=== PATIENT | female | born 1985 | race Caucasian/White ===

== ENCOUNTER 2017-02-19 12:15 | Emergency (ER) | payer MEDICARE ==
[2014-05-16 12:19] VITALS: BMI 23.6
[~2017-02-19 12:15] MED LIST: BYSTOLIC5 MG PO; CIPRO500 MG PO; DEPAKOTE250 MG PO; DESERYL100 MG PO; FLAGYL500 MG PO; HYDROCODONE-APA1 TAB PO; HYDROXYUREA500 MG PO; KLONOPIN1 MG PO; LACTINEX GRANUL1 PCK PO; PHENERGAN25 M1 PO; PRILOSEC20 MG PO; TRI-SPRINTEC1 TAB PO; VANCOMYCIN250 MG/51 PO
[2017-02-19 12:52] LABS: BASOPHILS 0.3 % (0-2); EOSINOPHILS 2.1 % (0-7); HEMATOCRIT 38.9 % (36.0-48.0); HEMOGLOBIN 13.3 g/dL (12-16); IMMATURE GRANULOCYTES 0.4 % (0-5); LYMPHOCYTES 22.3 % (15-50); MCHC 34.2 g/dL (31.0-37.0); MCV 93.7 fL (80.0-100.0); MEAN PLATELET VOLUME 9.2 fL (7.4-10.4); MONOCYTES 4.3 % (2-11); NEUTROPHILS 70.6 % (40-80); PLATELET COUNT 344 10x3/uL (130-400); RBC 4.15 10x6/uL (4.00-5.40); RDW 12.8 % (11.5-14.5); WBC 14.6 10x3/uL (4.8-10.8)
[2017-02-19 13:09] LABS: ALBUMIN 3.4 g/dL (3.4-5.0); ALKALINE PHOSPHATASE 67 U/L (46-116); ALT (SGPT) 21 U/L (10-68); BILIRUBIN - TOTAL 0.23 mg/dL (0.2-1.3); CALC OSMOLALITY 276 mosm/kg (275-300); CARBON DIOXIDE 24.2 mmol/L (21.0-32.0); CHLORIDE - SERUM 103 mmol/L (98-107); CREATININE - SERUM 0.6 mg/dL (0.6-1.3); GLUCOSE 128 mg/dL (74-106); POTASSIUM - SERUM 3.7 mmol/L (3.5-5.1); PROTEIN - SERUM 7.4 g/dL (6.4-8.2); SODIUM 138 mmol/L (136-145); UREA NITROGEN 9 mg/dL (7-18); eGFR NON AFRICAN AMERICAN > 90 mL/min (90-120)
[2017-02-19 13:36] LABS: HCG SERUM NEGATIVE (NEGATIVE)
[2017-02-19 13:52] LABS: APPEARANCE SLT CLOUDY (CLEAR); BACTERIA MANY /hpf (NONE SEEN); BILIRUBIN NEGATIVE (NEGATIVE); COLOR YELLOW (YELLOW); GLUCOSE NEGATIVE (NEGATIVE); KETONE NEGATIVE (NEGATIVE); LEUKOCYTE ESTERASE 1+ (NEGATIVE); MUCUS <1+ /lpf (NONE SEEN); NITRITE NEGATIVE (NEGATIVE); PROTEIN NEGATIVE (NEGATIVE); SPECIFIC GRAVITY 1.015 (1.005-1.020); UROBILINOGEN NORMAL (NORMAL); WHITE CELLS - URINE 0-5 /hpf (0-5)
== END 2017-02-19 17:04 | disposition home or self-care (01) ==
LOC: D.ER 12:15
PROVIDERS: Emergency Medicine; Physician Assistant
DX: R10.84 Generalized abdominal pain (principal); K92.1 Melena; R31.29 Other microscopic hematuria; F31.89 Other bipolar disorder; I10 Essential (primary) hypertension; F17.200 Nicotine dependence, unspecified, uncomplicated

== ENCOUNTER → 2017-05-19 18:04 | Outpatient (CLI) | payer MEDICARE ==
[2014-05-16 12:19] VITALS: BMI 23.6
== END | disposition home or self-care (01) ==
LOC: D.LABREF 18:04
DX: R31.9 Hematuria, unspecified (principal)

== ENCOUNTER 2017-05-28 08:08 | Day surgery (SDC) | payer MEDICARE ==
[~2017-05-28 08:08] MED LIST changes: +VALTREX500 MG PO; +VRAYLAR3 MG PO
[2017-05-28 09:16] VITALS: BP 116/68; BMI 28.6
[2017-05-28 09:36] LABS: HCG URINE NEGATIVE (NEGATIVE)
--- NOTE | 2017-05-28 13:36 | NUR ---
1330-RECD TO ROOM FROM SURGERY. NO PACU STAY. DROWSY BUT AROUSES TO NAME CALL. DR ESCOBEDO HERE TO REPORT. REMINDED TO HOLD BLADDER FOR 10-15 MORE MINUTES. RESP WITH EASE. IV PATENT.
--- NOTE | 2017-05-28 15:02 | OP ---
PATIENT NAME: RAMSEY CONNOR MEDICAL RECORD: [id number] :85 LOCATION:D.OPS ADMISSION DATE: SURGEON: ANDREW ESCOBEDO MD DATE OF OPERATION: 05/28/2017 SURGEON: Andrew Escobedo MD. ANESTHESIA: MAC. PREOPERATIVE DIAGNOSES: Microhematuria, interstitial cystitis. PROCEDURES: Cystoscopy, intravesical Rimso-50 installation times 50 mL. FINDINGS: Single ureteral orifices bilaterally. No bladder tumors. Diffuse bladder inflammation with glomerulations. BLOOD LOSS: None. CLINICAL HISTORY: This is a 31-year-old female, who is a smoker. She has microhematuria. She was worked up for this. She comes today to have cystoscopy for microhematuria workup. She also complains of dysuria and chronic pelvic pain. She may have interstitial cystitis. Urine cultures have shown no growth. SHE IS ALLERGIC TO IVP DYE, SULFA AND TORADOL. She was given 1 gram of Ancef risk control field representative to the OR. DESCRIPTION OF PROCEDURE: The patient was given IV sedation. She was placed in the dorsal lithotomy position and prepped and draped. A 17-Khmer cystoscope with 30-degree lens was used for visualization. Going into the bladder, the findings were as noted above. The bladder was then emptied through the cystoscope sheath and then the scope was removed. A 14-Khmer red rubber catheter was introduced into the bladder and 50 mL of Rimso-50 solution was instilled into the bladder. The catheter was removed, leaving the solution in the bladder. The patient will hold the solution in for at least 15 minutes and then void it out. She will come in to the office next week to have the second treatment done. TRANSINT:[id number] Voice Confirmation ID: [id number] DOCUMENT ID: [id number] ANDREW ESCOBEDO MD at 1502 CC: [id number] DICTATION DATE: 05/28/17 1329 LATHE SPOTTER: 05/28/17 1422 [address] [place] [address]
--- NOTE | 2017-05-28 15:31 | NUR ---
1515--PT VOIDS, IV DC'D. LUIS KNOTT 6834--DISCHARGE INSTRUCTIONS GIVEN, PT VERBALIZES UNDERSTANDING. PT OFF UNIT VIA WC. LUIS KNOTT
== END 2017-05-28 15:30 | disposition home or self-care (01) ==
LOC: D.OPS 08:08 → D.PAN 09:00 → D.OPS 10:00 → D.PAN 10:00 → D.OPS 10:30
PROVIDERS: Urology
DX: R31.29 Other microscopic hematuria (principal); N30.11 Interstitial cystitis (chronic) with hematuria; F17.200 Nicotine dependence, unspecified, uncomplicated; K21.9 Gastro-esophageal reflux disease without esophagitis; Z01.812 Encounter for preprocedural laboratory examination

== ENCOUNTER 2017-09-10 18:10 | Emergency (ER) | payer MEDICARE ==
[2017-09-10 18:42] LABS: BASOPHILS 0.3 % (0-2); EOSINOPHILS 2.8 % (0-7); HEMATOCRIT 36.5 % (36.0-48.0); HEMOGLOBIN 12.4 g/dL (12-16); IMMATURE GRANULOCYTES 0.2 % (0-5); LYMPHOCYTES 25.1 % (15-50); MCH 31.2 pg (26.0-34.0); MCV 91.9 fL (80.0-100.0); MEAN PLATELET VOLUME 9.2 fL (7.4-10.4); MONOCYTES 4.9 % (2-11); NEUTROPHILS 66.7 % (40-80); PLATELET COUNT 343 10x3/uL (130-400); RBC 3.97 10x6/uL (4.00-5.40); RDW 12.3 % (11.5-14.5)
[2017-09-10 18:59] LABS: ALBUMIN 3.2 g/dL (3.4-5.0); ALKALINE PHOSPHATASE 59 U/L (46-116); ALT (SGPT) 21 U/L (10-68); CALC OSMOLALITY 277 mosm/kg (275-300); CALCIUM 8.6 mg/dL (8.5-10.1); CARBON DIOXIDE 23.1 mmol/L (21.0-32.0); CHLORIDE - SERUM 105 mmol/L (98-107); CREATININE - SERUM 0.8 mg/dL (0.6-1.3); GLUCOSE 96 mg/dL (74-106); POTASSIUM - SERUM 3.4 mmol/L (3.5-5.1); PROTEIN - SERUM 6.9 g/dL (6.4-8.2); SODIUM 140 mmol/L (136-145); UREA NITROGEN 9 mg/dL (7-18); eGFR NON AFRICAN AMERICAN 89 mL/min (90-120)
[2017-09-10 19:36] LABS: APPEARANCE CLEAR (CLEAR); BILIRUBIN NEGATIVE (NEGATIVE); COLOR YELLOW (YELLOW); GLUCOSE NEGATIVE (NEGATIVE); KETONE NEGATIVE (NEGATIVE); NITRITE NEGATIVE (NEGATIVE); PROTEIN NEGATIVE (NEGATIVE); SPECIFIC GRAVITY 1.015 (1.005-1.020); UROBILINOGEN NORMAL (NORMAL)
[2017-09-10 19:39] LABS: EPITHELIAL CELLS 0-5 /hpf (0-5)
[2017-09-10 19:41] LABS: BACTERIA MODERATE /hpf (NONE SEEN)
== END 2017-09-10 20:50 | disposition home or self-care (01) ==
LOC: D.ER 18:10
PROVIDERS: Emergency Medicine; Nurse Practitioner Family
DX: K52.9 Noninfective gastroenteritis and colitis, unspecified (principal); R11.10 Vomiting, unspecified; N39.0 Urinary tract infection, site not specified; I10 Essential (primary) hypertension

== ENCOUNTER 2017-11-15 03:46 | Observation (INO) | payer MEDICARE ==
[2017-11-15 04:50] LABS: BASOPHILS 0.2 % (0-2); EOSINOPHILS 3.7 % (0-7); HEMATOCRIT 35.3 % (36.0-48.0); HEMOGLOBIN 11.6 g/dL (12-16); IMMATURE GRANULOCYTES 0.5 % (0-5); LYMPHOCYTES 27.6 % (15-50); MCH 30.4 pg (26.0-34.0); MCHC 32.9 g/dL (31.0-37.0); MCV 92.4 fL (80.0-100.0); MEAN PLATELET VOLUME 9.3 fL (7.4-10.4); MONOCYTES 5.6 % (2-11); NEUTROPHILS 62.4 % (40-80); PLATELET COUNT 329 10x3/uL (130-400); RBC 3.82 10x6/uL (4.00-5.40); RDW 12.4 % (11.5-14.5); WBC 12.9 10x3/uL (4.8-10.8)
[2017-11-15 08:48] LABS: BASOPHILS 0.1 % (0-2); EOSINOPHILS 2.1 % (0-7); HEMATOCRIT 35.4 % (36.0-48.0); HEMOGLOBIN 11.8 g/dL (12-16); IMMATURE GRANULOCYTES 0.3 % (0-5); MCH 30.6 pg (26.0-34.0); MCHC 33.3 g/dL (31.0-37.0); MCV 91.9 fL (80.0-100.0); MEAN PLATELET VOLUME 9.2 fL (7.4-10.4); MONOCYTES 3.7 % (2-11); NEUTROPHILS 74.8 % (40-80); PLATELET COUNT 330 10x3/uL (130-400); RBC 3.85 10x6/uL (4.00-5.40); RDW 12.3 % (11.5-14.5); WBC 13.6 10x3/uL (4.8-10.8)
[2017-11-15 09:21] VITALS: BP 122/71
[2017-11-15 09:48] LABS: HCG URINE NEGATIVE (NEGATIVE)
[2017-11-15 12:54] LABS: ALBUMIN 3.1 g/dL (3.4-5.0); ALKALINE PHOSPHATASE 54 U/L (46-116); ALT (SGPT) 16 U/L (10-68); AMYLASE - SERUM 45 U/L (25-115); BILIRUBIN - TOTAL 0.13 mg/dL (0.2-1.3); CALC OSMOLALITY 281 mosm/kg (275-300); CALCIUM 8.6 mg/dL (8.5-10.1); CARBON DIOXIDE 26.8 mmol/L (21.0-32.0); CHLORIDE - SERUM 107 mmol/L (98-107); CREATININE - SERUM 0.7 mg/dL (0.6-1.3); GLUCOSE 94 mg/dL (74-106); LIPASE 134 U/L (73-393); POTASSIUM - SERUM 4.4 mmol/L (3.5-5.1); PROTEIN - SERUM 6.9 g/dL (6.4-8.2); SODIUM 142 mmol/L (136-145); UREA NITROGEN 9 mg/dL (7-18); eGFR NON AFRICAN AMERICAN > 90 mL/min (90-120)
[2017-11-15 13:50] VITALS: BP 131/78
[2017-11-15 16:59] VITALS: BP 131/77
[2017-11-15 20:30] VITALS: BP 124/75
[2017-11-16 00:30] VITALS: BP 104/60
[2017-11-16 04:30] VITALS: BP 111/70
[2017-11-16 05:24] LABS: APTT 29.5 SECONDS (22.8-39.4); INR 1.05 (0.85-1.17); PROTIME 13.3 SECONDS (11.6-15.0)
[2017-11-16 05:27] LABS: BASOPHILS 0.3 % (0-2); EOSINOPHILS 4.3 % (0-7); HEMATOCRIT 33.2 % (36.0-48.0); HEMOGLOBIN 10.9 g/dL (12-16); IMMATURE GRANULOCYTES 0.3 % (0-5); LYMPHOCYTES 32.8 % (15-50); MCH 30.3 pg (26.0-34.0); MCHC 32.8 g/dL (31.0-37.0); MCV 92.2 fL (80.0-100.0); MEAN PLATELET VOLUME 9.2 fL (7.4-10.4); MONOCYTES 5.8 % (2-11); NEUTROPHILS 56.5 % (40-80); PLATELET COUNT 306 10x3/uL (130-400); RDW 12.3 % (11.5-14.5); WBC 10.4 10x3/uL (4.8-10.8)
[2017-11-16 05:30] LABS: CALC OSMOLALITY 277 mosm/kg (275-300); CARBON DIOXIDE 26.1 mmol/L (21.0-32.0); CHLORIDE - SERUM 107 mmol/L (98-107); CREATININE - SERUM 0.7 mg/dL (0.6-1.3); GLUCOSE 80 mg/dL (74-106); POTASSIUM - SERUM 3.9 mmol/L (3.5-5.1); SODIUM 141 mmol/L (136-145); UREA NITROGEN 6 mg/dL (7-18); eGFR NON AFRICAN AMERICAN > 90 mL/min (90-120)
[2017-11-16 08:34] VITALS: BP 110/65
[2017-11-16 08:44] LABS: APPEARANCE CLEAR (CLEAR); BILIRUBIN NEGATIVE (NEGATIVE); COLOR YELLOW (YELLOW); GLUCOSE NEGATIVE (NEGATIVE); KETONE NEGATIVE (NEGATIVE); NITRITE NEGATIVE (NEGATIVE); PROTEIN NEGATIVE (NEGATIVE); SPECIFIC GRAVITY 1.015 (1.005-1.020)
[2017-11-16 08:47] LABS: AMORPHOUS SEDIMENT <1+ /lpf (NONE SEEN); BACTERIA MANY /hpf (NONE SEEN); EPITHELIAL CELLS OCC /hpf (0-5); MUCUS <1+ /lpf (NONE SEEN); RED CELLS - URINE RARE /hpf (0-5); WHITE CELLS - URINE OCC /hpf (0-5)
[2017-11-16 11:39] VITALS: BP 108/65
[2017-11-16] MEDS ORDERED: PROTONIX40 MG PO (13:38)
[2017-11-16] MEDS ORDERED: CARAFATE1 G PO (13:39)
== END 2017-11-16 15:45 | disposition home or self-care (01) ==
LOC: D.ER 03:46 → D.M2 05:58 → OBSVTIME 05:58 → D.M2 05:58
PROVIDERS: Emergency Medicine; Internal Medicine Gastroenterology
DX: K92.0 Hematemesis (principal); K25.9 Gastric ulcer, unspecified as acute or chronic, without hemorrhage or perforation; K44.9 Diaphragmatic hernia without obstruction or gangrene; F31.9 Bipolar disorder, unspecified; F41.9 Anxiety disorder, unspecified; K21.9 Gastro-esophageal reflux disease without esophagitis

== ENCOUNTER → 2018-01-26 07:17 | Outpatient (CLI) | payer MEDICARE ==
[~2018-01-26 07:17] MED LIST changes: +CARAFATE1 G PO; +PROTONIX40 MG PO
== END | disposition home or self-care (01) ==
LOC: D.NM 07:17
DX: K21.9 Gastro-esophageal reflux disease without esophagitis (principal)

== ENCOUNTER 2018-04-01 14:29 | Emergency (ER) | payer MEDICARE ==
[~2018-04-01] VITALS: Ht 154.9 cm; Wt 68.2 kg
[2018-04-01 15:12] VITALS: Ht 154.9 cm; Wt 68.2 kg
[2018-04-01 15:51] LABS: BASOPHILS 0.3 % (0-2); EOSINOPHILS 1.7 % (0-7); HEMATOCRIT 38.3 % (36.0-48.0); HEMOGLOBIN 12.8 g/dL (12-16); IMMATURE GRANULOCYTES 0.4 % (0-5); LYMPHOCYTES 23.5 % (15-50); MCH 30.8 pg (26.0-34.0); MCHC 33.4 g/dL (31.0-37.0); MCV 92.1 fL (80.0-100.0); MEAN PLATELET VOLUME 9.2 fL (7.4-10.4); MONOCYTES 5.6 % (2-11); NEUTROPHILS 68.5 % (40-80); PLATELET COUNT 495 10x3/uL (130-400); RBC 4.16 10x6/uL (4.00-5.40); RDW 12.9 % (11.5-14.5); WBC 16.9 10x3/uL (4.8-10.8)
[2018-04-01 16:29] LABS: ALBUMIN 3.3 g/dL (3.4-5.0); ALKALINE PHOSPHATASE 78 U/L (46-116); ALT (SGPT) 14 U/L (10-68); BILIRUBIN - TOTAL 0.14 mg/dL (0.2-1.3); CALC OSMOLALITY 271 mosm/kg (275-300); CALCIUM 8.7 mg/dL (8.5-10.1); CARBON DIOXIDE 23.7 mmol/L (21.0-32.0); CHLORIDE - SERUM 103 mmol/L (98-107); CREATININE - SERUM 0.6 mg/dL (0.6-1.3); GLUCOSE 106 mg/dL (74-106); POTASSIUM - SERUM 3.8 mmol/L (3.5-5.1); PROTEIN - SERUM 7.3 g/dL (6.4-8.2); SODIUM 137 mmol/L (136-145); UREA NITROGEN 7 mg/dL (7-18); eGFR NON AFRICAN AMERICAN > 90 mL/min (90-120)
[2018-04-01 16:33] LABS: CREATINE KINASE 42 UL (21-215); TROPONIN-I < 0.017 ng/mL (0.000-0.060)
[2018-04-01 19:07] LABS: CKMB 0.2 U/L (0.0-3.6); PRO BNP 8 pg/mL (0-125)
[2018-04-01 22:43] LABS: APPEARANCE HAZY (CLEAR); BILIRUBIN NEGATIVE (NEGATIVE); COLOR YELLOW (YELLOW); GLUCOSE NEGATIVE (NEGATIVE); KETONE NEGATIVE (NEGATIVE); NITRITE NEGATIVE (NEGATIVE); PH 5.5 (5.0-6.0); PROTEIN TRACE mg/dL (NEGATIVE); SPECIFIC GRAVITY 1.025 (1.005-1.020); UROBILINOGEN NORMAL (NORMAL)
[2018-04-01 22:50] LABS: BACTERIA MANY /hpf (NONE SEEN); MUCUS >1+ /lpf (NONE SEEN); RED CELLS - URINE OCC /hpf (0-5); WHITE CELLS - URINE 0-5 /hpf (0-5)
[2018-04-01] MEDS ORDERED: ULTRAM50 MG PO (23:43)
[2018-04-01 23:51] VITALS: BP 126/87
== END 2018-04-01 23:51 | disposition home or self-care (01) ==
LOC: D.ER 14:29
PROVIDERS: Emergency Medicine; Family Medicine
DX: R16.0 Hepatomegaly, not elsewhere classified (principal); K44.9 Diaphragmatic hernia without obstruction or gangrene; K21.9 Gastro-esophageal reflux disease without esophagitis; F17.200 Nicotine dependence, unspecified, uncomplicated

== ENCOUNTER 2018-09-01 23:14 | Emergency (ER) | payer OTHER, MEDICAID ==
[~2018-09-01] VITALS: Ht 154.9 cm; Wt 70.9 kg
[~2018-09-01 23:14] MED LIST changes: +ULTRAM50 MG PO
[2018-09-01 23:20] VITALS: Ht 154.9 cm; Wt 70.9 kg
[2018-09-01] MEDS ORDERED: ZOFRAN ODT4 MG/UDTAB PO (23:47)
[2018-09-02 02:39] VITALS: BP 119/70
== END 2018-09-02 02:39 | disposition home or self-care (01) ==
LOC: D.ER 23:14
DX: R11.10 Vomiting, unspecified (principal)

== ENCOUNTER → 2018-10-14 07:52 | Outpatient (CLI) | payer OTHER, MEDICAID ==
[2018-09-01 23:20] VITALS: BMI 29.5
[~2018-10-14 07:52] MED LIST changes: +ZOFRAN ODT4 MG/UDTAB PO
== END | disposition home or self-care (01) ==
LOC: D.OPS 07:52
DX: K21.9 Gastro-esophageal reflux disease without esophagitis (principal)

== ENCOUNTER 2019-07-05 13:07 | Observation (INO) | payer OTHER, MEDICAID ==
[~2019-07-05] VITALS: Ht 154.9 cm; Wt 69.1 kg
[2019-07-05] MEDS ORDERED: CARAFATE1 G PO (13:29)
--- NOTE | 2019-07-05 14:02 | NUR ---
CALLED DR. NEWSOME AND INFORMED HIM THAT PT HAS ORDER FOR CT OF ABD/PELVIS WITH IV CONTRAST AND PT IS ALLERGIC TO IV AND ORAL CONTRAST. DR. KWAN STATED THAT HE WOULD BE BY TO ASSESS PT.
[2019-07-05 14:32] LABS: BASOPHILS 0.4 % (0-2); EOSINOPHILS 2.1 % (0-7); HEMOGLOBIN 11.5 g/dL (12-16); IMMATURE GRANULOCYTES 0.2 % (0-5); LYMPHOCYTES 32.2 % (15-50); MCH 28.9 pg (26.0-34.0); MCHC 31.9 g/dL (31.0-37.0); MCV 90.5 fL (80.0-100.0); MEAN PLATELET VOLUME 8.9 fL (7.4-10.4); MONOCYTES 5.4 % (2-11); NEUTROPHILS 59.7 % (40-80); PLATELET COUNT 415 10x3/uL (130-400); RBC 3.98 10x6/uL (4.00-5.40); RDW 13.9 % (11.5-14.5); WBC 10.7 10x3/uL (4.8-10.8)
[2019-07-05 14:48] LABS: CALC OSMOLALITY 272 mosm/kg (275-300); CALCIUM 8.8 mg/dL (8.5-10.1); CHLORIDE - SERUM 105 mmol/L (98-107); CREATININE - SERUM 0.6 mg/dL (0.6-1.3); GLUCOSE 75 mg/dL (74-106); POTASSIUM - SERUM 3.9 mmol/L (3.5-5.1); SODIUM 138 mmol/L (136-145); UREA NITROGEN 7 mg/dL (7-18); eGFR NON AFRICAN AMERICAN > 90 mL/min (90-120)
[2019-07-05 14:57] VITALS: BP 137/88; Ht 154.9 cm; Wt 69.1 kg
[2019-07-05 15:06] LABS: ALBUMIN 3.1 g/dL (3.4-5.0); ALKALINE PHOSPHATASE 71 U/L (46-116); ALT (SGPT) 13 U/L (10-68); AMYLASE - SERUM 55 U/L (25-115); BILIRUBIN - TOTAL 0.16 mg/dL (0.2-1.3); C-REACTIVE PROTEIN 2.2 mg/dL (0.0-0.9); LIPASE 145 U/L (73-393); PROTEIN - SERUM 6.8 g/dL (6.4-8.2)
--- NOTE | 2019-07-05 15:09 | NUR ---
DEMEROL GIVEN FOR PAIN LEVEL OF 10/10, ALSO GAVE 4MG OF ZOFRAN. INFORMED PT THAT DOCTOR HAS ORDERED A URINE SAMPLE. PROVIDED PT WITH COLLECTION CUP AND ASKED HER TO CONTACT US WHEN SAMPLE IS READY.
[2019-07-05 16:40] LABS: APPEARANCE CLEAR (CLEAR); BILIRUBIN NEGATIVE (NEGATIVE); COLOR YELLOW (YELLOW); GLUCOSE NEGATIVE (NEGATIVE); KETONE NEGATIVE (NEGATIVE); NITRITE NEGATIVE (NEGATIVE); PROTEIN NEGATIVE (NEGATIVE); UROBILINOGEN NORMAL (NORMAL)
[2019-07-05 16:46] LABS: RED CELLS - URINE 0-5 /hpf (0-5); WHITE CELLS - URINE 0-5 /hpf (NEGATIVE)
[2019-07-05 16:47] LABS: BACTERIA MANY /hpf (NEGATIVE); EPITHELIAL CELLS 0-5 /hpf (0-5)
[2019-07-05 17:05] VITALS: BP 119/68
[2019-07-05] MEDS ORDERED: BYSTOLIC5 MG PO (19:12)
--- NOTE | 2019-07-05 19:20 | NUR ---
EVENING ROUNDS COMPLETE. PT LAYING IN BED, FAMILY AT BEDSIDE. AAOX4, NO SIGNS OF DISTRESS. PT DENIES ANY PAIN OR NEEDS AT THIS TIME. CL IN REACH, BED IN LOWEST POSITION.
[2019-07-05 20:00] VITALS: BP 119/69
[2019-07-06] VITALS: BP 108/63
[2019-07-06 04:00] VITALS: BP 99/50
[2019-07-06 04:27] LABS: BASOPHILS 0.3 % (0-2); EOSINOPHILS 3.3 % (0-7); HEMATOCRIT 33.1 % (36.0-48.0); HEMOGLOBIN 10.5 g/dL (12-16); IMMATURE GRANULOCYTES 0.1 % (0-5); LYMPHOCYTES 38.9 % (15-50); MCH 28.8 pg (26.0-34.0); MCHC 31.7 g/dL (31.0-37.0); MCV 90.7 fL (80.0-100.0); MEAN PLATELET VOLUME 8.9 fL (7.4-10.4); MONOCYTES 5.8 % (2-11); NEUTROPHILS 51.6 % (40-80); RBC 3.65 10x6/uL (4.00-5.40); WBC 8.8 10x3/uL (4.8-10.8)
[2019-07-06 04:53] LABS: PLATELET COUNT 323 10x3/uL (130-400)
[2019-07-06 05:16] LABS: ALBUMIN 2.7 g/dL (3.4-5.0); ALKALINE PHOSPHATASE 64 U/L (46-116); ALT (SGPT) 13 U/L (10-68); BILIRUBIN - TOTAL 0.14 mg/dL (0.2-1.3); CALC OSMOLALITY 279 mosm/kg (275-300); CALCIUM 8.3 mg/dL (8.5-10.1); CARBON DIOXIDE 25.1 mmol/L (21.0-32.0); CHLORIDE - SERUM 107 mmol/L (98-107); CREATININE - SERUM 0.7 mg/dL (0.6-1.3); GLUCOSE 80 mg/dL (74-106); POTASSIUM - SERUM 4.1 mmol/L (3.5-5.1); SODIUM 142 mmol/L (136-145); UREA NITROGEN 6 mg/dL (7-18); eGFR NON AFRICAN AMERICAN > 90 mL/min (90-120)
--- NOTE | 2019-07-06 07:39 | NUR ---
GAVE 2MG OF MORPHINE FOR PAIN LEVEL OF 9/10. ALSO EMPTIED 800CC OUT OF HAT FROM LAST NIGHT. PT DENIES ANY OTHER NEEDS AT THIS TIME. CALL LIGHT IN REACH, NAD NOTED, WILL CONTINUE TO MONITOR.
[2019-07-06 08:45] VITALS: BP 106/62
--- NOTE | 2019-07-06 08:53 | NUR ---
AM MEDS GIVEN AT THIS TIME. PT RATES PAIN LEVEL NOW 5/10. PT DENIES ANY NEEDS AT THIS TIME. CALL LIGHT IN REACH, NAD NOTED,WILL CONTINUE TO MONITOR.
[2019-07-06 10:21] LABS: % SATURATION 20 % (15-55); IRON 72 ug/dl (35-150); TOTAL IRON BIND CAPACITY 352 ug/dl (260-445); UNSAT IRON BIND CAPACITY 280 ug/dl (150-375)
[2019-07-06 13:04] VITALS: BP 105/58
[2019-07-06 17:44] VITALS: BP 93/45
--- NOTE | 2019-07-06 19:00 | NUR ---
EVENING ROUNDS COMPLETE. PT SITTING UP IN BED. FAMILY AT BEDSIDE. AAOX4. NO SIGNS OF DISTRESS. PT DENIES ANY NEEDS AT THIS TIME. CL IN REACH, BED IN LOWEST POSITION.
[2019-07-06 20:00] VITALS: BP 103/65
[2019-07-07 05:09] VITALS: BP 126/58
[2019-07-07 06:25] LABS: BASOPHILS 0.2 % (0-2); EOSINOPHILS 2.9 % (0-7); HEMATOCRIT 34.2 % (36.0-48.0); HEMOGLOBIN 10.7 g/dL (12-16); IMMATURE GRANULOCYTES 0.2 % (0-5); LYMPHOCYTES 36.7 % (15-50); MCH 28.5 pg (26.0-34.0); MCHC 31.3 g/dL (31.0-37.0); MCV 91.2 fL (80.0-100.0); MONOCYTES 6.4 % (2-11); NEUTROPHILS 53.6 % (40-80); RBC 3.75 10x6/uL (4.00-5.40); RDW 14.1 % (11.5-14.5); WBC 9.6 10x3/uL (4.8-10.8)
[2019-07-07 06:32] LABS: ALBUMIN 2.7 g/dL (3.4-5.0); ALKALINE PHOSPHATASE 62 U/L (46-116); ALT (SGPT) 11 U/L (10-68); BILIRUBIN - TOTAL 0.13 mg/dL (0.2-1.3); CALC OSMOLALITY 277 mosm/kg (275-300); CARBON DIOXIDE 27.4 mmol/L (21.0-32.0); CHLORIDE - SERUM 108 mmol/L (98-107); CREATININE - SERUM 0.7 mg/dL (0.6-1.3); GLUCOSE 88 mg/dL (74-106); POTASSIUM - SERUM 3.9 mmol/L (3.5-5.1); PROTEIN - SERUM 6.1 g/dL (6.4-8.2); SODIUM 141 mmol/L (136-145); UREA NITROGEN 6 mg/dL (7-18); eGFR NON AFRICAN AMERICAN > 90 mL/min (90-120)
[2019-07-07 06:34] VITALS: BP 137/56
[2019-07-07 06:46] LABS: PLATELET COUNT 419 10x3/uL (130-400)
[2019-07-07 07:09] VITALS: BP 137/56
[2019-07-07 07:13] VITALS: BP 135/67
--- NOTE | 2019-07-07 07:37 | NUR ---
PATIENT IS ALERT AND AWAKE. REPORT RECIEVED. IN REPORT I AM TOLD THAT THE PATIENT IS CONSTIPATED.
[2019-07-07 08:41] VITALS: BP 109/54
[2019-07-07] MEDS ORDERED: FLOMAX0.4 MG PO (10:35)
--- NOTE | 2019-07-07 10:59 | NUR ---
UPON ADMIT, PATIENT HAS NOT HAD A FLU SHOT. ORDERED.
[2019-07-07 12:40] VITALS: BP 122/78
--- NOTE | 2019-07-07 13:12 | NUR ---
ALL DISCHARGE TEACHING HAS BEEN DONE AND PAPERS SIGNED. IV REMOVED FORM RIGHT HAND WITH CATHETER INTACT PATIENT TOLERATED. ALL PATIENT BELONGINGS REMOVED FROM THE ROOM AND PATIENT IS GOING HOME WITH FAMILY. FLU VACCINE GIVEN ORDERED IN THE RIGHT DELTOID. PATIENTS MEDICATIONS GIVEN BACK TO HER THAT WERE IN THE CASSETTE.
--- NOTE | 2019-07-08 09:08 | MORECARE ---
CASE MANAGEMENT DISCHARGE SUMMARY PATIENT: RAMSEY DESAI UNIT: [id number] ADM DATE: 07/05/19 AGE: 33 : 85 SEX: F ROOM/BED: D.2134 AUTHOR: NATANAEL GARCIA PHYSICIAN: REFERRING PHYSICIAN: CLAYTON TRINH MD DATE OF SERVICE: 07/08/19 Discharge Plan Patient Name[facility] RAMSEY DESAI [facility] [facility] 1985 Planned Disposition: Home Anticipated Discharge Date: 07/07/19 Discharge Date: 07/07/2019 Expected LOS: 2 Initial Reviewer: [email or web address] Initial Review Date: 07/08/2019 Generated: 07/08/19 10:08 am Coverage Notice Reviewer: [email or web address] Camden Cheney Notice Issued Date-Time: 07/05/2019 14:35 Notice Type: Medicare Outpatient Observation Notice Notice Delivered To: Patient Relationship to Patient: Animal Feeder Name: Delivery Method: HAND - Hand Delivered Deb Days: Prior Verbal Notification: Recipient Understood Notice: Recipient Signature: Med Rec Note Co-signed by Attending: Coverage Notice Comment: Patient Name: RAMSEY DESAI Page [phone] at 0908 All edits/amendments must be made on the electronic document DICTATION DATE: 07/08/19907 HOSPICE SOCIAL WORKER: ELEONORA 07/08/19907 RPT#: [id number] DC DATE:07/07/19 STATUS: DIS IN [facility] [address] [place] [address] END OF REPORT
== END 2019-07-07 13:53 | disposition home or self-care (01) ==
LOC: D.M2 13:07 → OBSVTIME 13:56 → D.M2 07-07 13:53
PROVIDERS: Internal Medicine Nephrology; ADMIT Family Medicine; ATTEND Family Medicine
DX: N39.0 Urinary tract infection, site not specified (principal); K59.00 Constipation, unspecified; N17.9 Acute kidney failure, unspecified; D64.9 Anemia, unspecified; K21.9 Gastro-esophageal reflux disease without esophagitis; F41.8 Other specified anxiety disorders; R10.9 Unspecified abdominal pain

== ENCOUNTER 2019-07-17 16:02 | Emergency (ER) | payer OTHER, MEDICAID ==
[~2019-07-17] VITALS: Ht 154.9 cm; Wt 68.2 kg
[~2019-07-17 16:02] MED LIST changes: +FLOMAX0.4 MG PO
[2019-07-17 16:20] VITALS: Ht 154.9 cm; Wt 68.2 kg
[2019-07-17 17:11] LABS: APPEARANCE SL CLDY (CLEAR); BACTERIA MANY /hpf (NEGATIVE); BILIRUBIN NEGATIVE (NEGATIVE); COLOR YELLOW (YELLOW); GLUCOSE NEGATIVE (NEGATIVE); KETONE NEGATIVE (NEGATIVE); MUCUS <1+ /lpf (NONE SEEN); NITRITE NEGATIVE (NEGATIVE); PROTEIN NEGATIVE (NEGATIVE); SPECIFIC GRAVITY 1.015 (1.005-1.020); WHITE CELLS - URINE OCC /hpf (NEGATIVE)
[2019-07-17 17:16] LABS: BASOPHILS 0.2 % (0-2); EOSINOPHILS 1.8 % (0-7); HEMATOCRIT 34.9 % (36.0-48.0); HEMOGLOBIN 11.4 g/dL (12-16); IMMATURE GRANULOCYTES 0.1 % (0-5); LYMPHOCYTES 28.5 % (15-50); MCHC 32.7 g/dL (31.0-37.0); MCV 88.8 fL (80.0-100.0); MEAN PLATELET VOLUME 9.1 fL (7.4-10.4); MONOCYTES 6.1 % (2-11); NEUTROPHILS 63.3 % (40-80); PLATELET COUNT 421 10x3/uL (130-400); RBC 3.93 10x6/uL (4.00-5.40); RDW 13.8 % (11.5-14.5); WBC 11.4 10x3/uL (4.8-10.8)
[2019-07-17 17:29] LABS: CALC OSMOLALITY 275 mosm/kg (275-300); CALCIUM 8.7 mg/dL (8.5-10.1); CARBON DIOXIDE 24.5 mmol/L (21.0-32.0); CHLORIDE - SERUM 104 mmol/L (98-107); CREATININE - SERUM 0.8 mg/dL (0.6-1.3); GLUCOSE 98 mg/dL (74-106); POTASSIUM - SERUM 3.4 mmol/L (3.5-5.1); SODIUM 139 mmol/L (136-145); UREA NITROGEN 7 mg/dL (7-18); eGFR NON AFRICAN AMERICAN 87 mL/min (90-120)
[2019-07-17 17:34] LABS: ALKALINE PHOSPHATASE 81 U/L (46-116); ALT (SGPT) 20 U/L (10-68); LIPASE 208 U/L (73-393); PROTEIN - SERUM 7.2 g/dL (6.4-8.2)
[2019-07-17 17:35] LABS: BILIRUBIN - TOTAL 0.09 mg/dL (0.2-1.3)
[2019-07-17] MEDS ORDERED: CHRONULAC30 ML PO (18:23)
[2019-07-17] MEDS ORDERED: PHENERGAN25 M1 PO (18:23)
[2019-07-17 19:22] VITALS: BP 132/77
== END 2019-07-17 19:22 | disposition home or self-care (01) ==
LOC: D.ER 16:02
PROVIDERS: Emergency Medicine
DX: K59.00 Constipation, unspecified (principal); R11.0 Nausea; R00.0 Tachycardia, unspecified

== ENCOUNTER 2020-11-16 20:45 | Emergency (ER) | payer OTHER, MEDICAID ==
[~2020-11-16] VITALS: Ht 154.9 cm; Wt 74.1 kg
[~2020-11-16 20:45] MED LIST changes: +CHRONULAC30 ML PO; +CYCLOBENZAPRINE10 MG PO; +HYDROCODON-ACE1 EA10 PO; +PAXIL10 MG PO; +ZOFRAN4 MG PO
[2020-11-16 20:49] VITALS: Ht 154.9 cm; Wt 74.1 kg
[2020-11-16] MEDS ORDERED: MUCINEX600 MG PO (20:53)
[2020-11-16] MEDS ORDERED: LEVOFLOXACIN500 MG PO (20:53)
[2020-11-16] MEDS ORDERED: PROAIR HFA8.5 G1 INH (20:53)
[2020-11-16 21:33] LABS: BASOPHILS 0.3 % (0-2); EOSINOPHILS 2.2 % (0-7); HEMATOCRIT 37.9 % (36.0-48.0); HEMOGLOBIN 12.6 g/dL (12-16); IMMATURE GRANULOCYTES 0.5 % (0-5); LYMPHOCYTE ABS# 3.95 10x3/uL (1.18-3.74); LYMPHOCYTES 25.7 % (15-50); MCH 29.7 pg (26.0-34.0); MCHC 33.2 g/dL (31.0-37.0); MCV 89.4 fL (80.0-100.0); MEAN PLATELET VOLUME 9.1 fL (7.4-10.4); MONOCYTES 4.6 % (2-11); NEUTROPHIL ABS# 10.25 10x3/uL (1.56-6.13); NEUTROPHILS 66.7 % (40-80); PLATELET COUNT 343 10x3/uL (130-400); RBC 4.24 10x6/uL (4.00-5.40); RDW 13.3 % (11.5-14.5); WBC 15.3 10x3/uL (4.8-10.8)
[2020-11-16 21:37] LABS: CALC OSMOLALITY 272 mosm/kg (275-300); CALCIUM 8.9 mg/dL (8.5-10.1); CARBON DIOXIDE 22.8 mmol/L (21.0-32.0); CHLORIDE - SERUM 101 mmol/L (98-107); CREATININE - SERUM 0.8 mg/dL (0.6-1.3); POTASSIUM - SERUM 3.5 mmol/L (3.5-5.1); SODIUM 136 mmol/L (136-145); UREA NITROGEN 13 mg/dL (7-18); eGFR NON AFRICAN AMERICAN 86 mL/min (90-120)
[2020-11-16 21:39] LABS: GLUCOSE 120 mg/dL (74-106)
[2020-11-16 21:43] LABS: ALBUMIN 3.3 g/dL (3.4-5.0); ALKALINE PHOSPHATASE 65 U/L (30-120); ALT (SGPT) 17 U/L (10-68); BILIRUBIN - TOTAL 0.23 mg/dL (0.2-1.3); PROTEIN - SERUM 7.3 g/dL (6.4-8.2)
[2020-11-16 22:32] VITALS: BP 117/75
== END 2020-11-16 22:33 | disposition home or self-care (01) ==
LOC: D.ER 20:45
PROVIDERS: Family Medicine
DX: J40 Bronchitis, not specified as acute or chronic (principal); F41.9 Anxiety disorder, unspecified; D72.829 Elevated white blood cell count, unspecified; I10 Essential (primary) hypertension

== ENCOUNTER 2020-11-23 17:03 | Outpatient (CLI) | payer OTHER, MEDICAID ==
[2020-11-16 20:49] VITALS: BMI 30.8
[~2020-11-23 17:03] MED LIST changes: +LEVOFLOXACIN500 MG PO; +MUCINEX600 MG PO; +PROAIR HFA8.5 G1 INH
== END 2020-11-23 23:59 | disposition home or self-care (01) ==
LOC: D.MAMMO 17:03
PROVIDERS: ATTEND Family Medicine
DX: Z12.31 Encounter for screening mammogram for malignant neoplasm of breast (principal)

== ENCOUNTER 2021-01-29 17:40 | Emergency (ER) | payer OTHER, MEDICAID ==
[~2021-01-29] VITALS: Ht 154.9 cm; Wt 77.3 kg
[2021-01-29 17:49] VITALS: Ht 154.9 cm; Wt 77.3 kg
[2021-01-29 18:51] LABS: BASOPHILS 0.8 % (0-2); EOSINOPHILS 1.7 % (0-7); HEMATOCRIT 37.9 % (36.0-48.0); HEMOGLOBIN 12.5 g/dL (12-16); LYMPHOCYTES 22.1 % (15-50); MCH 29.8 pg (26.0-34.0); MCV 90.3 fL (80.0-100.0); MONOCYTES 4.5 % (2-11); NEUTROPHILS 70.9 % (40-80); RDW 13.8 % (11.5-14.5); WBC 19.6 10x3/uL (4.8-10.8)
[2021-01-29 18:57] LABS: PLATELET COUNT 513 10x3/uL (130-400)
[2021-01-29 19:01] LABS: APTT 28.3 SECONDS (22.8-39.4); INR 1.06 (0.85-1.17); PROTIME 12.8 SECONDS (11.6-15.0)
[2021-01-29 19:04] LABS: CALC OSMOLALITY 275 mosm/kg (275-300); CALCIUM 8.6 mg/dL (8.5-10.1); CARBON DIOXIDE 20.6 mmol/L (21.0-32.0); CHLORIDE - SERUM 100 mmol/L (98-107); CREATININE - SERUM 0.8 mg/dL (0.6-1.3); GLUCOSE 145 mg/dL (74-106); POTASSIUM - SERUM 3.3 mmol/L (3.5-5.1); SODIUM 136 mmol/L (136-145); UREA NITROGEN 15 mg/dL (7-18); eGFR NON AFRICAN AMERICAN 86 mL/min (90-120)
[2021-01-29 19:16] LABS: ALBUMIN 3.1 g/dL (3.4-5.0); ALKALINE PHOSPHATASE 57 U/L (30-120); ALT (SGPT) 21 U/L (10-68); BILIRUBIN - TOTAL 0.16 mg/dL (0.2-1.3); PRO BNP 9 pg/mL (0-125)
[2021-01-29] MEDS ORDERED: GUAIFEN-CODEINE10 ML PO (20:12)
[2021-01-29] MEDS ORDERED: ZPAK PO (20:12)
[2021-01-29 20:19] VITALS: BP 137/86
== END 2021-01-29 20:19 | disposition home or self-care (01) ==
LOC: D.ER 17:40
PROVIDERS: Family Medicine
DX: J06.9 Acute upper respiratory infection, unspecified (principal); R06.02 Shortness of breath; Z72.0 Tobacco use; I10 Essential (primary) hypertension

== ENCOUNTER 2021-01-30 21:29 | Inpatient (IN) | payer OTHER, MEDICAID ==
[~2021-01-30] VITALS: Ht 154.9 cm; Wt 77.3 kg
[~2021-01-30 21:29] MED LIST changes: +GUAIFEN-CODEINE10 ML PO; +ZPAK PO
[2021-01-30 22:24] LABS: BASOPHILS 0.4 % (0-2); EOSINOPHILS 0.3 % (0-7); HEMATOCRIT 35.1 % (36.0-48.0); HEMOGLOBIN 11.6 g/dL (12-16); LYMPHOCYTES 22.5 % (15-50); MCH 29.8 pg (26.0-34.0); MCHC 33.1 g/dL (31.0-37.0); MEAN PLATELET VOLUME 6.8 fL (7.4-10.4); MONOCYTES 5.8 % (2-11); PLATELET COUNT 477 10x3/uL (130-400); RDW 13.4 % (11.5-14.5); WBC 20.1 10x3/uL (4.8-10.8)
--- NOTE | 2021-01-30 22:30 | NUR ---
RT AT BEDSIDE FOR SOURAV
[2021-01-30 22:32] LABS: CALC OSMOLALITY 274 mosm/kg (275-300); CALCIUM 8.4 mg/dL (8.5-10.1); CARBON DIOXIDE 22.3 mmol/L (21.0-32.0); CHLORIDE - SERUM 102 mmol/L (98-107); CREATININE - SERUM 0.8 mg/dL (0.6-1.3); GLUCOSE 186 mg/dL (74-106); POTASSIUM - SERUM 3.2 mmol/L (3.5-5.1); SODIUM 135 mmol/L (136-145); UREA NITROGEN 12 mg/dL (7-18); eGFR NON AFRICAN AMERICAN 86 mL/min (90-120)
[2021-01-30 22:46] LABS: ALBUMIN 2.9 g/dL (3.4-5.0); ALKALINE PHOSPHATASE 57 U/L (30-120); ALT (SGPT) 17 U/L (10-68); BILIRUBIN - TOTAL 0.12 mg/dL (0.2-1.3); MAGNESIUM - SERUM 1.7 mg/dL (1.8-2.4); PRO BNP 46 pg/mL (0-125); PROTEIN - SERUM 6.6 g/dL (6.4-8.2); TROPONIN-I < 0.017 ng/mL (0.000-0.060)
--- NOTE | 2021-01-30 23:13 | NUR ---
PT C/O N/V AFTER COUGHING EPIDSODE. EDP NOTFIED.
[2021-01-30 23:31] VITALS: BP 123/70
[2021-01-31] VITALS (9 sets, daily range): BP systolic 98–126; BP diastolic 46–77; BMI 32.2
--- NOTE | 2021-01-31 00:57 | NUR ---
PT STATES SHE FEELS SOB, 02 SAT 94-96% RA. PT PLACED ON 2L NC.
--- NOTE | 2021-01-31 01:50 | NUR ---
COVID AND FLU SWAB SENT TO LAB
[2021-01-31 02:33] LABS: INFLUENZA TYPE A NEGATIVE (NEGATIVE); INFLUENZA TYPE B NEGATIVE (NEGATIVE); SARS-CoV-2 ANTIGEN NEGATIVE- SARS-COV-2 (NEGATIVE)
--- NOTE | 2021-01-31 03:45 | NUR ---
URINE SENT TO LAB
[2021-01-31 04:12] LABS: HCG URINE POSITIVE (NEGATIVE)
[2021-01-31 04:19] LABS: BILIRUBIN NEGATIVE (NEGATIVE); KETONE NEGATIVE (NEGATIVE); NITRITE NEGATIVE (NEGATIVE); UROBILINOGEN NORMAL mg/dL (< 2)
[2021-01-31 04:20] LABS: BACTERIA FEW HPF (NONE SEEN); SQUAMOUS EPITHELIAL 0-5 HPF (0-4); WHITE CELLS - URINE NONE SEEN HPF (0-4)
[2021-01-31 04:29] LABS: UDS - AMPHET NEGATIVE QUAL (NEGATIVE); UDS - BARB NEGATIVE QUAL (NEGATIVE); UDS - BENZO NEGATIVE QUAL (NEGATIVE); UDS - COCAINE NEGATIVE QUAL (NEGATIVE); UDS - OPIATE POSITIVE QUAL (NEGATIVE); UDS - PCP NEGATIVE QUAL (NEGATIVE); UDS - THC POSITIVE QUAL (NEGATIVE)
--- NOTE | 2021-01-31 05:11 | NUR ---
PT GIVEN ANOTHER BLANKET, DENIES FURTHER NEEDS. CALL LIGHT IN REACH.
[2021-01-31 06:17] LABS: BASOPHILS 0.2 % (0-2); EOSINOPHILS 0 % (0-7); HEMATOCRIT 35.7 % (36.0-48.0); HEMOGLOBIN 11.8 g/dL (12-16); LYMPHOCYTES 7.7 % (15-50); MCH 29.9 pg (26.0-34.0); MCV 90.8 fL (80.0-100.0); MONOCYTES 0.8 % (2-11); NEUTROPHILS 91.3 % (40-80); PLATELET COUNT 442 10x3/uL (130-400); RBC 3.93 10x6/uL (4.00-5.40); RDW 13.9 % (11.5-14.5); WBC 15.1 10x3/uL (4.8-10.8)
[2021-01-31 06:51] LABS: ALKALINE PHOSPHATASE 52 U/L (30-120); ALT (SGPT) 17 U/L (10-68); BILIRUBIN - TOTAL 0.17 mg/dL (0.2-1.3); C-REACTIVE PROTEIN 1.4 mg/dL (0.0-0.9); CALC OSMOLALITY 277 mosm/kg (275-300); CARBON DIOXIDE 22.3 mmol/L (21.0-32.0); CHLORIDE - SERUM 104 mmol/L (98-107); CREATININE - SERUM 0.7 mg/dL (0.6-1.3); FERRITIN 45 ng/mL (3-244); GLUCOSE 191 mg/dL (74-106); LDH 112 U/L (81-234); PHOSPHOROUS 2.5 mg/dL (2.5-4.9); PROTEIN - SERUM 6.8 g/dL (6.4-8.2); SODIUM 137 mmol/L (136-145); UREA NITROGEN 11 mg/dL (7-18); eGFR NON AFRICAN AMERICAN > 90 mL/min (90-120)
[2021-01-31 06:52] LABS: MAGNESIUM - SERUM 2.5 mg/dL (1.8-2.4); POTASSIUM - SERUM 4.3 mmol/L (3.5-5.1)
[2021-01-31 07:27] LABS: ERYTHROCYTE SEDIMENTATION RATE 22 mm/hr (0-20)
--- NOTE | 2021-01-31 08:13 | NUR ---
DR LOGAN NOTIFIED OF CONSULT.
--- NOTE | 2021-01-31 14:47 | NUR ---
CALLED REPORT TO JOEL KNOTT MED II
--- NOTE | 2021-01-31 19:00 | NUR ---
REPORT RECEIVED. PATIENT IS AAOX4, UP AT ESTEBAN. NO S/S OF DISTRESS OBSERVED, RR EVEN AND UNLABORED ON 2L O2 VIA NC. PIV TO RT AC, SL. NO NEEDS EXPRESSED AT THIS TIME. CL IN REACH, BED LOCKED AND LOWERED. COVID PRECAUTIONS MAINTAINED. WILL CPOC.
--- NOTE | 2021-02-01 | NUR ---
NOTICED PATIENT HAD A POSITIVE URINE HCG AND IS ON SOME MEDS THAT MAY NOT BE SAFE. PAGED JEOVANNY SERNA FOR FURTHER INSTRUCTION.
--- NOTE | 2021-02-01 03:00 | NUR ---
CHART CHECK COMPLETED. NOTED POSITIVE HCG, QUALITATIVE ON URINE TEST. NOTIFIED MANAGER FRONT ENTERTAINMENT LAWYER, RECEIVED NEW ORDERS TO CALL THE MANAGER FRONT MD VIA THE ANSWERING SERVICE TO INFORM THEM OFF FINDING.
--- NOTE | 2021-02-01 03:17 | NUR ---
I have reviewed this patient and I concur with the Shift Assessment completed by the Licensed Practical Nurse today this shift.
--- NOTE | 2021-02-01 06:20 | NUR ---
NOTIFED NUTRITION SERVICES AIDE MD DODD OF POSITIVE URINE HCG. RECEIVED NEW ORDERS TO Abbey/Ricky DUONG FOR OTHER MEDICATION AT THIS TIME. ORDERED SERUM HCG AND NOTIFIED LAB OF ORDER.
[2021-02-01 06:57] LABS: BASOPHILS 0.1 % (0-2); EOSINOPHILS 0.2 % (0-7); HEMATOCRIT 34.8 % (36.0-48.0); HEMOGLOBIN 11.5 g/dL (12-16); LYMPHOCYTES 10.7 % (15-50); MCH 30.1 pg (26.0-34.0); MCHC 33.1 g/dL (31.0-37.0); MCV 90.9 fL (80.0-100.0); MEAN PLATELET VOLUME 6.8 fL (7.4-10.4); MONOCYTES 2.7 % (2-11); NEUTROPHILS 86.3 % (40-80); PLATELET COUNT 472 10x3/uL (130-400); RBC 3.83 10x6/uL (4.00-5.40); RDW 14.1 % (11.5-14.5); WBC 15.1 10x3/uL (4.8-10.8)
[2021-02-01 08:05] LABS: ALBUMIN 2.9 g/dL (3.4-5.0); ALKALINE PHOSPHATASE 47 U/L (30-120); ALT (SGPT) 14 U/L (10-68); BILIRUBIN - TOTAL 0.13 mg/dL (0.2-1.3); CALCIUM 8.4 mg/dL (8.5-10.1); CARBON DIOXIDE 25.6 mmol/L (21.0-32.0); CHLORIDE - SERUM 105 mmol/L (98-107); GLUCOSE 155 mg/dL (74-106); HCG - QUANTITATIVE (MATERNAL) 2227 mIU/mL; MAGNESIUM - SERUM 2.5 mg/dL (1.8-2.4); PHOSPHOROUS 2.6 mg/dL (2.5-4.9); POTASSIUM - SERUM 4.8 mmol/L (3.5-5.1); PROTEIN - SERUM 6.6 g/dL (6.4-8.2); SODIUM 139 mmol/L (136-145); eGFR NON AFRICAN AMERICAN 75 mL/min (90-120)
[2021-02-01 08:06] LABS: CALC OSMOLALITY 281 mosm/kg (275-300); CREATININE - SERUM 0.9 mg/dL (0.6-1.3); UREA NITROGEN 16 mg/dL (7-18)
--- NOTE | 2021-02-01 19:29 | NUR ---
RECEIVED REPORT, WILL ASSUME CARE OF PT, ASKING FOR ICEWATER AND LEMONLIME, PROVIDED, DENIES ANY OTHER NEEDS AT THIS TIME, BED IS LOW, SRX2, CALL LIGHT IN REACH, WILL CONTINUE PLAN OF CARE
[2021-02-01 20:59] VITALS: BP 114/63
[2021-02-02 01:58] VITALS: BP 111/68
[2021-02-02 05:02] VITALS: BP 107/67
[2021-02-02 05:36] LABS: BASOPHILS 0.2 % (0-2); EOSINOPHILS 0.2 % (0-7); HEMATOCRIT 35.2 % (36.0-48.0); HEMOGLOBIN 11.7 g/dL (12-16); LYMPHOCYTES 25.6 % (15-50); MCHC 33.2 g/dL (31.0-37.0); MCV 90.4 fL (80.0-100.0); MEAN PLATELET VOLUME 6.9 fL (7.4-10.4); MONOCYTES 4.7 % (2-11); NEUTROPHILS 69.3 % (40-80); PLATELET COUNT 463 10x3/uL (130-400); RDW 14.1 % (11.5-14.5); WBC 17.5 10x3/uL (4.8-10.8)
[2021-02-02 05:45] LABS: ALKALINE PHOSPHATASE 46 U/L (30-120); BILIRUBIN - TOTAL 0.16 mg/dL (0.2-1.3); CALCIUM 8.5 mg/dL (8.5-10.1); CHLORIDE - SERUM 104 mmol/L (98-107); CREATININE - SERUM 0.8 mg/dL (0.6-1.3); GLUCOSE 111 mg/dL (74-106); MAGNESIUM - SERUM 2.2 mg/dL (1.8-2.4); PROTEIN - SERUM 6.6 g/dL (6.4-8.2); SODIUM 138 mmol/L (136-145); eGFR NON AFRICAN AMERICAN 86 mL/min (90-120)
[2021-02-02 05:46] LABS: ALT (SGPT) 22 U/L (10-68); CALC OSMOLALITY 275 mosm/kg (275-300); PHOSPHOROUS 3.7 mg/dL (2.5-4.9); POTASSIUM - SERUM 3.8 mmol/L (3.5-5.1); UREA NITROGEN 10 mg/dL (7-18)
[2021-02-02 08:06] VITALS: BP 117/64
[2021-02-02 12:10] VITALS: BP 95/52
--- NOTE | 2021-02-02 14:10 | NUR ---
0700 BEDSIDE SHIFT REPORT RECEIVED AWAKE IN BED PT IS PUI ON ISOLATION TEST PENDING
--- NOTE | 2021-02-02 14:11 | NUR ---
0830 MORPHINE IV GIVEN FOR PAIN SEE MAR
--- NOTE | 2021-02-02 14:14 | NUR ---
0539 JUNK DEALER PERFORMING GEOLOGIST PETROLEUM U/S
[2021-02-02 15:32] VITALS: BP 116/57
[2021-02-02 17:19] VITALS: Ht 154.9 cm; Wt 77.3 kg
[2021-02-02 20:42] VITALS: BP 111/69
[2021-02-03 01:13] VITALS: BP 131/74
[2021-02-03 06:49] LABS: BASOPHILS 0.2 % (0-2); HEMATOCRIT 37.7 % (36.0-48.0); HEMOGLOBIN 12.8 g/dL (12-16); LYMPHOCYTE ABS# 4.64 10x3/uL (1.18-3.74); LYMPHOCYTES 25.7 % (15-50); MCH 30.9 pg (26.0-34.0); MCV 91.1 fL (80.0-100.0); MEAN PLATELET VOLUME 9.1 fL (7.4-10.4); MONOCYTES 5.9 % (2-11); NEUTROPHILS 64.2 % (40-80); PLATELET COUNT 479 10x3/uL (130-400); RBC 4.14 10x6/uL (4.00-5.40); RDW 14.2 % (11.5-14.5); WBC 18.1 10x3/uL (4.8-10.8)
[2021-02-03 07:22] LABS: ALKALINE PHOSPHATASE 49 U/L (30-120); BILIRUBIN - TOTAL 0.26 mg/dL (0.2-1.3); CALC OSMOLALITY 273 mosm/kg (275-300); CALCIUM 8.4 mg/dL (8.5-10.1); CHLORIDE - SERUM 104 mmol/L (98-107); CREATININE - SERUM 0.7 mg/dL (0.6-1.3); GLUCOSE 90 mg/dL (74-106); MAGNESIUM - SERUM 2.2 mg/dL (1.8-2.4); PROTEIN - SERUM 6.7 g/dL (6.4-8.2); SODIUM 138 mmol/L (136-145); UREA NITROGEN 8 mg/dL (7-18); eGFR NON AFRICAN AMERICAN > 90 mL/min (90-120)
[2021-02-03 07:41] LABS: ALT (SGPT) 28 U/L (10-68); POTASSIUM - SERUM 3.2 mmol/L (3.5-5.1)
[2021-02-03 08:23] VITALS: BP 123/63
[2021-02-03 08:32] LABS: ALBUMIN 3.2 g/dL (3.4-5.0); CARBON DIOXIDE 19.7 mmol/L (21.0-32.0)
[2021-02-03 16:04] VITALS: BP 97/56
[2021-02-03 20:35] VITALS: BP 124/69
[2021-02-04 01:21] VITALS: BP 123/63
[2021-02-04 05:28] VITALS: BP 127/70
--- NOTE | 2021-02-04 08:31 | NUR ---
AM MEDS GIVEN AT THIS TIME, PT AWAKE AND ALERT, BREAKFAST TRAY GIVEN AT THIS TIME. PT RR EVEN NON LABORED ON ROOM AIR. PT COVID NEGATIVE. PT DENIES ANY PAIN OR NEEDS AT THIS TIME. CLWR.
[2021-02-04 08:57] LABS: ALBUMIN 3.5 g/dL (3.4-5.0); ALKALINE PHOSPHATASE 65 U/L (30-120); BILIRUBIN - TOTAL 0.28 mg/dL (0.2-1.3); CALC OSMOLALITY 269 mosm/kg (275-300); CALCIUM 9.2 mg/dL (8.5-10.1); CARBON DIOXIDE 18.8 mmol/L (21.0-32.0); CHLORIDE - SERUM 102 mmol/L (98-107); CREATININE - SERUM 0.7 mg/dL (0.6-1.3); GLUCOSE 107 mg/dL (74-106); MAGNESIUM - SERUM 2.1 mg/dL (1.8-2.4); PROTEIN - SERUM 7.7 g/dL (6.4-8.2); SODIUM 136 mmol/L (136-145); UREA NITROGEN 7 mg/dL (7-18); eGFR NON AFRICAN AMERICAN > 90 mL/min (90-120)
[2021-02-04 08:59] LABS: ALT (SGPT) 49 U/L (10-68); PHOSPHOROUS 2.8 mg/dL (2.5-4.9); POTASSIUM - SERUM 3.7 mmol/L (3.5-5.1)
[2021-02-04 09:00] VITALS: BP 131/83
[2021-02-04 09:21] LABS: HEMATOCRIT 40.4 % (36.0-48.0); HEMOGLOBIN 13.3 g/dL (12-16); MCH 29.9 pg (26.0-34.0); MCHC 32.9 g/dL (31.0-37.0); MEAN PLATELET VOLUME 7.1 fL (7.4-10.4); PLATELET COUNT 624 10x3/uL (130-400); RBC 4.44 10x6/uL (4.00-5.40); WBC 24.4 10x3/uL (4.8-10.8)
[2021-02-04] MEDS ORDERED: ZOLOFT25 MG PO (11:49)
[2021-02-04 12:00] VITALS: BP 125/75
--- NOTE | 2021-02-04 14:09 | NUR ---
D/C INSTRUCTIONS GIVEN TO PT AT THIS TIME. PT STATES UNDERSTANDING. MEDREC REVIEWED WITH PT. NO QUESTIONS VOICED. IV D/C'D , CATHETER INTACT, DRESSING APPLIED. PT GATHERED BELONGINGS.
--- NOTE | 2021-02-04 14:10 | NUR ---
PT WHEELED TO PRIVATE VEHICLE AT THIS TIME. NO DISTRESS NOTED ON DEPATURE.
--- NOTE | 2021-02-04 14:55 | MORECARE ---
CASE MANAGEMENT DISCHARGE SUMMARY PATIENT: RAMSEY DESAI UNIT: [id number] ADM DATE: 01/31/21 AGE: 35 : 85 SEX: F ROOM/BED: D.2128 AUTHOR: JOSE,DOC PHYSICIAN: REFERRING PHYSICIAN: DAYO SMITH MD DATE OF SERVICE: 02/04/21 Case Management Discharge Planning Summary COMMENTS ENTERED DATE: 02/04/21 14:18 CT COMMENT TYPE: Discharge Planning REVIEWER: Karlie Koroma PT DISCHARGED TO HOME WITH NO VOICED NEEDS AT THIS TIME. DCP REVIEW SUMMARY ANTICIPATED D/C DATE: 02/04/2021 EXPECTED LOS : 4 CASE STATUS: DCP Initiated INITIAL REVIEW: 01/31/2021 INITIAL REVIEWER: Karlie Koroma FINAL DISCHARGE DISPOSITION: 01 : Home or Self Care (Routine Discharge) FINAL REVIEWER: FINAL REVIEW DATE: DCP Focus Questions & Answers DCP Evaluation QUESTION: ANSWER Patient's ability to cope with chronic illness : d. No chronic illness Would patient like to participate in any Care Coordination programs (if applicable): : Not applicable Mental health screen: : No mental health history DCP Re-evaluation QUESTION: ANSWER Would patient like to participate in any Care Coordination programs (if applicable): : Not applicable PATIENT: RAMSEY DESAI ENCOUNTER: [id number] MEDICAL RECORD#: [id number] ADMISSION DATE: 01/31/2021 DISCHARGE DATE: 02/04/2021 ATTENDING MD: DAYO NUGENT : AGE: 35 MARITAL STATUS: M DC PLAN ID: [id number] FACILITY: [facility] PRINTED ON: 02/04/21 14:54 CT All edits/amendments must be made on the electronic document DICTATION DATE: 02/04/21 1454 BANQUET COORDINATOR: DM 02/04/21 1454 RPT#: [id number] DC DATE:02/04/21 STATUS: DIS IN [id number] [place] [address] END OF REPORT
[2021-02-04 15:21] LABS: LYMPHOCYTES 21 % (15-50); MONOCYTES 17 % (2-11); NEUTROPHILS 59 % (40-80); PLATELET ESTIMATE INCREASED
--- NOTE | 2021-02-05 13:53 | MORECARE ---
CASE MANAGEMENT DISCHARGE SUMMARY PATIENT: RAMSEY DESAI UNIT: [id number] ADM DATE: 01/31/21 AGE: 35 : 85 SEX: F ROOM/BED: D.2128 AUTHOR: NATANAEL GARCIA PHYSICIAN: REFERRING PHYSICIAN: DAYO SMITH MD DATE OF SERVICE: 02/05/21 Case Management Discharge Planning Summary COMMENTS ENTERED DATE: 02/04/21 14:18 CT COMMENT TYPE: Discharge Planning REVIEWER: Karlie Koroma PT DISCHARGED TO HOME WITH NO VOICED NEEDS AT THIS TIME. DCP REVIEW SUMMARY ANTICIPATED D/C DATE: 02/04/2021 EXPECTED LOS : 4 CASE STATUS: DCP Complete INITIAL REVIEW: 01/31/2021 INITIAL REVIEWER: Karlie Koroma FINAL DISCHARGE DISPOSITION: 01 : Home or Self Care (Routine Discharge) FINAL REVIEWER: Karlie Koroma FINAL REVIEW DATE: 02/05/2021 DCP Focus Questions & Answers DCP Evaluation QUESTION: ANSWER Patient's ability to cope with chronic illness : d. No chronic illness Would patient like to participate in any Care Coordination programs (if applicable): : Not applicable Mental health screen: : No mental health history DCP Re-evaluation QUESTION: ANSWER Would patient like to participate in any Care Coordination programs (if applicable): : Not applicable PATIENT: RAMSEY DESAI ENCOUNTER: [id number] MEDICAL RECORD#: [id number] ADMISSION DATE: 01/31/2021 DISCHARGE DATE: 02/04/2021 ATTENDING MD: DAYO NUGENT : AGE: 35 MARITAL STATUS: M DC PLAN ID: [id number] FACILITY: [facility] PRINTED ON: 02/05/21 13:53 CT All edits/amendments must be made on the electronic document DICTATION DATE: 02/05/21 1353 EXERCISE SCIENCE INSTRUCTOR: ELEONORA 02/05/21 1353 RPT#: [id number] DC DATE:02/04/21 STATUS: DIS IN [address] [address] [place] [address] END OF REPORT
[2021-02-05 19:08] LABS: IMMUNOGLOBULIN E 46 IU/mL (6-495)
== END 2021-02-04 14:11 | disposition home or self-care (01) | DRG 832 ==
LOC: D.ER 21:29 → OBSVTIME 01-31 05:25 → D.EDHOLD 01-31 05:25 → D.M2 01-31 11:59
PROVIDERS: Family Medicine; Internal Medicine Pulmonary Disease; ADMIT Emergency Medicine; ATTEND Emergency Medicine
DX: O98.811 Other maternal infectious and parasitic diseases complicating pregnancy, first trimester (principal); O99.321 Drug use complicating pregnancy, first trimester; Z3A.01 Less than 8 weeks gestation of pregnancy; J20.9 Acute bronchitis, unspecified; E87.6 Hypokalemia; F31.9 Bipolar disorder, unspecified; K31.84 Gastroparesis; J44.9 Chronic obstructive pulmonary disease, unspecified; F17.200 Nicotine dependence, unspecified, uncomplicated; F12.90 Cannabis use, unspecified, uncomplicated; D64.9 Anemia, unspecified; O99.331 Smoking (tobacco) complicating pregnancy, first trimester; O99.011 Anemia complicating pregnancy, first trimester; D63.8 Anemia in other chronic diseases classified elsewhere; O99.341 Other mental disorders complicating pregnancy, first trimester

== ENCOUNTER 2021-02-19 18:06 | Emergency (ER) | payer OTHER, MEDICAID ==
[~2021-02-19] VITALS: Ht 154.9 cm; Wt 72.7 kg
[~2021-02-19 18:06] MED LIST changes: +ZOLOFT25 MG PO
[2021-02-19 19:01] VITALS: Ht 154.9 cm; Wt 72.7 kg
[2021-02-19 20:24] LABS: BASOPHILS 0.5 % (0-2); EOSINOPHILS 1.8 % (0-7); HEMATOCRIT 38.3 % (36.0-48.0); HEMOGLOBIN 12.7 g/dL (12-16); MCHC 33.1 g/dL (31.0-37.0); MCV 90.6 fL (80.0-100.0); MEAN PLATELET VOLUME 7.1 fL (7.4-10.4); MONOCYTES 6.5 % (2-11); NEUTROPHILS 64.2 % (40-80); RBC 4.23 10x6/uL (4.00-5.40); RDW 14.2 % (11.5-14.5); WBC 14.5 10x3/uL (4.8-10.8)
[2021-02-19 20:29] LABS: PLATELET COUNT 494 10x3/uL (130-400)
[2021-02-19 20:38] LABS: CALC OSMOLALITY 274 mosm/kg (275-300); CALCIUM 9.2 mg/dL (8.5-10.1); CARBON DIOXIDE 25.8 mmol/L (21.0-32.0); CHLORIDE - SERUM 102 mmol/L (98-107); CREATININE - SERUM 0.8 mg/dL (0.6-1.3); GLUCOSE 100 mg/dL (74-106); SODIUM 138 mmol/L (136-145); UREA NITROGEN 9 mg/dL (7-18); eGFR NON AFRICAN AMERICAN 86 mL/min (90-120)
[2021-02-19 20:45] LABS: ALBUMIN 3.6 g/dL (3.4-5.0); ALKALINE PHOSPHATASE 73 U/L (30-120); ALT (SGPT) 21 U/L (10-68); BILIRUBIN - TOTAL 0.16 mg/dL (0.2-1.3); PROTEIN - SERUM 7.7 g/dL (6.4-8.2)
[2021-02-19 23:47] LABS: BILIRUBIN NEGATIVE (NEGATIVE); KETONE NEGATIVE mg/dL (< 1+); NITRITE NEGATIVE (NEGATIVE); PH 6.5 (5.0-8.0); SQUAMOUS EPITHELIAL 3 HPF (0-4); UROBILINOGEN NORMAL mg/dL (< 2); WHITE CELLS - URINE 1 HPF (0-4)
[2021-02-20 01:00] VITALS: BP 134/77
[2021-02-20 01:40] LABS: UDS - AMPHET NEGATIVE QUAL (NEGATIVE); UDS - BARB NEGATIVE QUAL (NEGATIVE); UDS - BENZO NEGATIVE QUAL (NEGATIVE); UDS - COCAINE NEGATIVE QUAL (NEGATIVE); UDS - OPIATE NEGATIVE QUAL (NEGATIVE); UDS - PCP NEGATIVE QUAL (NEGATIVE); UDS - THC POSITIVE QUAL (NEGATIVE)
== END 2021-02-20 01:21 | disposition home or self-care (01) ==
LOC: D.ER 18:06
PROVIDERS: Family Medicine
DX: O13.1 Gestational [pregnancy-induced] hypertension without significant proteinuria, first trimester (principal); Z3A.01 Less than 8 weeks gestation of pregnancy; D72.829 Elevated white blood cell count, unspecified; O23.41 Unspecified infection of urinary tract in pregnancy, first trimester